=== PATIENT | male | born 1945 | race Caucasian/White ===

== ENCOUNTER 2017-01-31 15:50 | Emergency (ER) | payer MEDICARE ==
[2017-01-31 15:50] VITALS: BMI 33.9
[2017-01-31 16:00] VITALS: O2SAT 99
[2017-01-31] MEDS ORDERED: Naproxen 550 mg Tab PO STA (16:32)
[2017-01-31] MEDS ORDERED: Naproxen 550 mg Tab PO ONE (16:55)
--- NOTE | 2017-01-31 17:19 | C.PDOC ---
History Of Present Illness 71 year old male with a history of HTN and hypercholesterolemia, presents to the ED with complaints of back pain for the past 3 months. Records reviewed showing the patient was evaluated in the ER a year ago for the same complaints. Denies fall, injury, change in sensation, incontinence, or any other complaints at this time. Time Seen by Provider: 01/31/17 16:08 Chief Complaint (Nursing): Back Pain History Per: Patient History/Exam Limitations: no limitations Onset/Duration Of Symptoms: Days Current Symptoms Are (Timing): Still Present Quality Of Discomfort: "Pain" Severity: Mild Associated Symptoms: None Past Medical History Reviewed: Historical Data, Nursing Documentation, Vital Signs Vital Signs: Last Vital Signs Temp 97.5 F L 01/31/17 15:58 Pulse 73 01/31/17 15:58 Resp 16 01/31/17 15:58 BP 170/79 H 01/31/17 15:58 Pulse Ox 99 01/31/17 17:22 - Medical History PMH: HTN, Hypercholesterolemia Family History: States: Unknown Family Hx - Social History Hx Tobacco Use: No Hx Alcohol Use: Yes Hx Substance Use: No - Immunization History Hx Tetanus Toxoid Vaccination: No Hx Influenza Vaccination: No Hx Pneumococcal Vaccination: Yes Review Of Systems Except As Marked, All Systems Reviewed And Found Negative. Constitutional: Negative for: Fever Gastrointestinal: Negative for: Abdominal Pain Genitourinary: Negative for: Incontinence Musculoskeletal: Positive for: Back Pain Neurological: Negative for: Weakness, Numbness Physical Exam - Physical Exam Appears: Non-toxic, No Acute Distress Skin: Normal Color, Warm, Dry Head: Atraumatic, Normacephalic Eye(s): bilateral: Normal Inspection Oral Mucosa: Moist Neck: No Midline Cervical Tenderness, No Step Off Deformity Chest: Symmetrical Respiratory: No Accessory Muscle Use Back: No Vertebral Tenderness, Paraspinal Tenderness (+Right parathroacic tenderness) Extremity: Normal ROM, No Deformity Neurological/Psych: Oriented x3, Normal Speech, Normal Cognition ED Course And Treatment O2 Sat by Pulse Oximetry: 99 (Room air) Pulse Ox Interpretation: Normal Medical Decision Making Medical Decision Making: Plan: -Dorsal Throacic Spine X-ray -Naproxen -Flexeril -Reassess Progress: Disposition - Disposition Disposition: HOME/ ROUTINE Disposition Time: 17:52 Condition: STABLE Prescriptions: Cyclobenzaprine [Cyclobenzaprine HCl] 10 mg PO TID PRN #21 tab PRN Reason: Muscle Spasm Naproxen 500 mg PO BID PRN #14 tab PRN Reason: Pain, Mild (1-3) Instructions: Back Pain (GEN) - Clinical Impression Clinical Impression: Back pain - Scribe Statement The provider has reviewed the documentation as recorded by the Scribe Roxann Huertas. Provider Attestation: All medical record entries made by the Scribe were at my direction and personally dictated by me. I have reviewed the chart and agree that the record accurately reflects my personal performance of the history, physical exam, medical decision making, and the department course for this patient. I have also personally directed, reviewed, and agree with the discharge instructions and disposition.
--- NOTE | 2017-01-31 17:53 | RAD ---
HISTORY: back pain COMPARISON: No prior. FINDINGS: BONES: No fracture. Vertebral bodies maintained in height. Normal alignment maintained. DISC SPACES: Disc spaces maintained in height. Diffuse spondylosis with osteophytes about the mid and lower thoracic intervertebral disc spaces. SOFT TISSUES: Normal. OTHER FINDINGS: None. IMPRESSION: No evidence of fracture or degenerative disc disease.
[2017-01-31 18:07] VITALS: BP 162/82; PULSE 69; RESP 19; TEMP 98.2
== END 2017-01-31 18:06 | disposition home or self-care (01) ==
LOC: C.ER 15:50
DX: M54.6 Pain in thoracic spine (principal)

== ENCOUNTER 2017-04-05 20:06 | Emergency (ER) | payer MEDICARE ==
[2017-04-05 20:06] VITALS: BMI 33.9
[2017-04-05 20:40] VITALS: TEMP 98.2
--- NOTE | 2017-04-05 20:53 | C.PDOC ---
History Of Present Illness Patient is a 72 y/o male that presents to the ED for evaluation of back pain, and intermittent bladder pain for the last few days. Pt also reports burning sensation upon urination. Otherwise, denies any fever, chills, nausea, vomiting , or any other associated symptoms at this time. Time Seen by Provider: 04/05/17 20:53 Chief Complaint (Nursing): Male Genitourinary History Per: Patient History/Exam Limitations: no limitations Onset/Duration Of Symptoms: Days Current Symptoms Are (Timing): Still Present Severity: Moderate Pain Scale Rating Of: 4 Quality Of Discomfort: "Pain" Associated Symptoms: Urinary Symptoms. denies: Fever, Chills, Nausea, Vomiting , Diarrhea, Loss Of Appetite, Back Pain, Chest Pain, Constipation Alleviating Factors: None Recent travel outside of the [place]: No Additional History Per: Patient Past Medical History Reviewed: Historical Data, Nursing Documentation, Vital Signs Vital Signs: Last Vital Signs Temp 98.2 F 04/05/17 20:37 Pulse 3 L 04/05/17 20:37 Resp 20 04/05/17 20:37 BP 153/76 H 04/05/17 20:37 Pulse Ox 100 04/05/17 21:43 - Medical History PMH: HTN, Hypercholesterolemia Family History: States: Unknown Family Hx - Social History Hx Tobacco Use: No Hx Alcohol Use: Yes Hx Substance Use: No - Immunization History Hx Tetanus Toxoid Vaccination: No Hx Influenza Vaccination: No Hx Pneumococcal Vaccination: Yes Review Of Systems Constitutional: Negative for: Fever, Chills Cardiovascular: Negative for: Chest Pain, Palpitations Respiratory: Negative for: Cough, Shortness of Breath Gastrointestinal: Negative for: Nausea, Vomiting, Abdominal Pain Genitourinary: Positive for: Dysuria. Negative for: Frequency, Incontinence, Hematuria Musculoskeletal: Positive for: Back Pain Skin: Negative for: Rash Neurological: Negative for: Weakness, Numbness Physical Exam - Physical Exam Appears: Non-toxic, No Acute Distress Skin: Warm, Dry, No Rash Head: Atraumatic Eye(s): bilateral: Normal Inspection Oral Mucosa: Moist Neck: Normal ROM, Supple Chest: Symmetrical, No Tenderness Cardiovascular: Rhythm Regular, No Murmur Respiratory: No Rales, No Rhonchi, No Wheezing Gastrointestinal/Abdominal: Soft, No Tenderness Back: CVA Tenderness (right), No Vertebral Tenderness Neurological/Psych: Oriented x3, Normal Speech ED Course And Treatment - Laboratory Results Result Diagrams: 04/05/17 21:18 04/05/17 21:18 O2 Sat by Pulse Oximetry: 100 (on RA) Pulse Ox Interpretation: Normal Progress Note: Abd & pelvis CT, labs ordered and reviewed. Patient was given IV fluids, and Toradol in the ER. Reevaluation Time: 22:32 Reassessment Condition: Improved Medical Decision Making Medical Decision Making: Upon provider reevaluation patient is feeling better, is medically stable, and requires no further treatment in the ED at this time. Patient will be discharged home with Rx for flagyl and cipro . Counseling was provided and all questions were answered regarding diagnosis and need for follow up with Dr zeng. There is agreement to discharge plan. Return if symptoms persist or worsen. Disposition Counseled Patient/Family Regarding: Studies Performed, Diagnosis, Need For Followup, Rx Given - Disposition Referrals: Zhang Zeng MD [Medical Doctor] - Disposition: HOME/ ROUTINE Disposition Time: 20:53 Condition: FAIR Additional Instructions: Please return if symptoms recur Prescriptions: Ciprofloxacin [Cipro] 1 tab PO BID #14 tab Metronidazole [Flagyl] 500 mg PO TID #21 tablet Instructions: Diverticulitis (DC), Abdominal Pain (ED) - Clinical Impression Clinical Impression: Abdominal pain, Rectosigmoid diverticulitis - Scribe Statement The provider has reviewed the documentation as recorded by the Radha Contreras Provider Attestation: All medical record entries made by the Radha were at my direction and personally dictated by me. I have reviewed the chart and agree that the record accurately reflects my personal performance of the history, physical exam, medical decision making, and the department course for this patient. I have also personally directed, reviewed, and agree with the discharge instructions and disposition.
[2017-04-05 20:55] LABS: URINE BILIRUBIN NEGATIVE (NEGATIVE); URINE BLOOD NEGATIVE (NEGATIVE); URINE COLOR Yellow (YELLOW); URINE GLUCOSE (UA) NORMAL (Normal); URINE KETONE NEGATIVE (NEGATIVE); URINE LEUKOCYTE ESTERASE NEG Leu/uL (Negative); URINE PROTEIN NEGATIVE (NEGATIVE); URINE UROBILINOGEN NORMAL mg/dL (0.2-1.0); WBC URINE 1 /hpf (0-5)
[2017-04-05] MEDS ORDERED: Sodium Chloride 0.9% 1,000 ML IV ONE (21:02)
[2017-04-05 21:23] LABS: BASO # 0.2 K/uL (0.0-0.2); BASO % 1.3 % (0.0-2.0); EOS # 0.3 K/uL (0.0-0.7); EOS % 2.1 % (0.0-4.0); HEMATOCRIT 43.6 % (35.0-51.0); LYMPH # 2.1 K/uL (1.0-4.3); LYMPH % 17.3 % (20.0-40.0); MEAN CORPUSCULAR HEMOGLOBIN 29.4 pg (27.0-31.0); MEAN CORPUSCULAR HGB CONC 33.7 g/dL (33.0-37.0); MEAN PLATELET VOLUME 9.7 fL (7.2-11.7); MONO # 1.3 K/uL (0.0-0.8); RED CELL DISTRIBUTION WIDTH 14.1 % (11.5-14.5); WHITE BLOOD COUNT 12.2 K/uL (4.8-10.8)
[2017-04-05] MEDS ORDERED: Sodium Chloride 0.9% 1,000 ML ONE (21:25)
[2017-04-05 21:29] LABS: CHLORIDE 96 mmol/L (98-107)
[2017-04-05 21:30] LABS: POTASSIUM 4.1 mmol/L (3.6-5.2); SODIUM 137 mmol/L (132-148)
[2017-04-05 21:32] LABS: ALB/GLOB RATIO 1.3 (1.0-2.1); ALKALINE PHOSPHATASE 86 U/L (38-126); AST/SGOT 21 U/L (17-59); BLOOD UREA NITROGEN 18 mg/dL (9-20); CARBON DIOXIDE 31 mmol/L (22-30); GFR AFRICAN-AMERICAN > 60; TOTAL PROTEIN 7.7 g/dL (6.3-8.3)
[2017-04-05 21:33] LABS: ALT/SGPT 19 U/L (21-72); CALCIUM 9.4 mg/dl (8.6-10.4); GLUCOSE,RANDOM 117 mg/dL (75-110)
[2017-04-05] MEDS ORDERED: Clindamycin 600mg/50ml D5W 600 MG/50 ML VIAL IVPB ONE (22:29)
[2017-04-05] MEDS ORDERED: metroNIDAZOLE IV 500 mg/100 ml 500 MG/100 ML BAG ONE (22:29)
[2017-04-05] MEDS ORDERED: metroNIDAZOLE IV 500 mg/100 ml 500 MG/100 ML BAG IVPB SCH (22:30)
[2017-04-06 00:19] VITALS: BP 141/84; PULSE 70; RESP 18; O2SAT 99
--- NOTE | 2017-04-06 08:33 | CT ---
PROCEDURE: CT Abdomen and Pelvis without intravenous contrast HISTORY: r flank pain, hx of kidney stones COMPARISON: None. TECHNIQUE: Unenhanced study. Neither oral nor intravenous contrast administered. . Radiation dose: Total exam DLP = 1009.01 mGy-cm. This CT exam was performed using one or more of the following dose reduction techniques: Automated exposure control, adjustment of the mA and/or kV according to patient size, and/or use of iterative reconstruction technique. FINDINGS: LOWER THORAX: Unremarkable. LIVER: Unremarkable. No gross lesion or ductal dilatation. GALLBLADDER AND BILE DUCTS: Unremarkable. PANCREAS: Unremarkable. No gross lesion or ductal dilatation. SPLEEN: Unremarkable. ADRENALS: Unremarkable. No mass. KIDNEYS AND URETERS: Unremarkable. No hydronephrosis. No solid mass. VASCULATURE: Unremarkable. No aortic aneurysm. BOWEL: Sigmoid diverticulitis with intense inflammatory changes without drainable collection, loculated air or free air. 1st APPENDIX: Unremarkable. Normal appendix. PERITONEUM: Unremarkable. No free fluid. No free air. LYMPH NODES: Unremarkable. No enlarged lymph nodes. BLADDER: Unremarkable. REPRODUCTIVE: Unremarkable. BONES: No acute fracture. OTHER FINDINGS: None. IMPRESSION: Acute sigmoid diverticulitis. No evidence of loculated air, free air or drainable collection. Concordant results (preliminary interpretation) provided by [facility]. Procedure Completed: 21:55. Preliminary ([facility]) Report: Dictated and Authenticated: 22:18. Final Interpretation: 08:31. April 06, 2017.
== END 2017-04-06 00:20 | disposition home or self-care (01) ==
LOC: C.ER 20:06
DX: K57.32 Diverticulitis of large intestine without perforation or abscess without bleeding (principal); I10 Essential (primary) hypertension; E78.00 Pure hypercholesterolemia, unspecified
CPT/HCPCS: 74176; 80053; 81001; 83690; 85025; 85610; 96365; 96367; 96375; 99285; J1885; J7040

== ENCOUNTER 2017-06-22 12:27 | Emergency (ER) | payer MEDICARE ==
[2017-06-22 12:27] VITALS: BMI 33.9
[2017-06-22 12:46] VITALS: TEMP 98
[2017-06-22] MEDS ORDERED: Naproxen 550 mg Tab PO STA (13:07)
[2017-06-22] MEDS ORDERED: Naproxen 550 mg Tab PO ONE (13:11)
--- NOTE | 2017-06-22 14:27 | C.PDOC ---
History Of Present Illness 72 yr old male presents to the ER with complaints of pain and tingling sensation in the right 1st, 2nd and 3rd digits for the past several days. Patient states he has hadd this type of pain before, states he use to do work which required a lot of repetitive movements and was previously told he has carpal tunnel. Patient also reports a bruise to the anterior right wrist. He denies trauma/injury, arm pain, shoulder pain, extremity weakness. Time Seen by Provider: 06/22/17 12:41 Chief Complaint (Nursing): Upper Extremity Problem/Injury History Per: Patient History/Exam Limitations: no limitations Onset/Duration Of Symptoms: Days Current Symptoms Are (Timing): Still Present Severity: Mild Past Medical History Reviewed: Historical Data, Nursing Documentation, Vital Signs Vital Signs: Last Vital Signs Temp 98 F 06/22/17 12:43 Pulse 75 06/22/17 14:55 Resp 16 06/22/17 14:55 BP 137/76 06/22/17 14:55 Pulse Ox 99 06/22/17 18:37 - Medical History PMH: HTN, Hypercholesterolemia Family History: States: No Known Family Hx - Social History Hx Tobacco Use: No Hx Alcohol Use: Yes Hx Substance Use: No - Immunization History Hx Tetanus Toxoid Vaccination: No Hx Influenza Vaccination: No Hx Pneumococcal Vaccination: Yes Review Of Systems Except As Marked, All Systems Reviewed And Found Negative. Constitutional: Negative for: Fever, Chills Musculoskeletal: Positive for: Other (Pain and tingling sensation at right 1st , 2nd and 3rd digits ). Negative for: Shoulder Pain, Arm Pain Skin: Positive for: Bruising (to the right anterior wrist) Neurological: Negative for: Weakness, Numbness Physical Exam - Physical Exam Appears: Well, Non-toxic, No Acute Distress Skin: Normal Color, Warm, Dry, No Rash Head: Normacephalic Cardiovascular: Rhythm Regular Respiratory: Normal Breath Sounds, No Rales, No Rhonchi, No Wheezing Extremity: No Tenderness, Capillary Refill (<2 sec all digits ), No Swelling, Other (2cm area of mild ecchymosis and tenderness to palpation to distal/medial forearm, anterior aspect. ROM intact at the wrist and digits. No erythema of the hand or wrist.) Extremity: Bilateral: Normal Color And Temperature, Normal ROM Pulses: Left Radial: Normal, Right Radial: Normal Neurological/Psych: Oriented x3, Normal Motor, Normal Sensation ED Course And Treatment O2 Sat by Pulse Oximetry: 99 (RA ) Pulse Ox Interpretation: Normal - Other Rad X-Ray - Right Forearm X-Ray: Viewed By Me, Read By Radiologist Interpretation: PROCEDURE: Radiographs of the Right Forearm. HISTORY: right forearm pain. COMPARISON: No prior study available comparison. TECHNIQUE: Frontal and lateral views obtained. FINDINGS: BONES: No evidence of acute displaced fracture nor dislocation. There is a small elliptical shaped corticated density adjacent to the lateral epicondyle which could represent some old posttraumatic mineralization or possibly old unfused avulsion injury. The osseous structures appear intact. There are no cortical destructive changes. Incidental note made of a prominent radial tuberosity. JOINT SPACES: Joint spaces appear preserved. OTHER FINDINGS: None. IMPRESSION: No evidence of acute displaced fracture nor dislocation. There is a small elliptical shaped corticated density adjacent to the lateral epicondyle which could represent some old posttraumatic mineralization or possibly old unfused avulsion injury. Incidental note made of a prominent radial tuberosity. Progress Note: PLAN: Patient given PO naprosyn. X-Ray - Right Forearm ordered and reviewed, was (-) for fracture/dislocation. Right wrist removable cockup splint was applied by computer systems technician (for carpal tunnel symptoms). Patient given Rx for Naprosyn and instructed to follow up with hand specialist within 1 week. He understands he should return to ED if symptoms worsen. Reevaluation Time: 14:30 Reassessment Condition: Improved Disposition Counseled Patient/Family Regarding: Diagnosis, Need For Followup, Rx Given - Disposition Referrals: Lisa Bashir MD [Provisional Staff] - [employer] [facility] [Outside] Disposition: HOME/ ROUTINE Disposition Time: 14:30 Condition: STABLE Additional Instructions: SEGUIMIENTO CON EL ESPECIALISTA DE MANO DENTRO DE 1 SEMANA USE LOS MEDICAMENTOS QUE EVARISTO NECESARIOS MANTENER LA LAMINA A LA TANTA POSIBILIDAD Y LA MANO / BRAZO DE REPOSO DEVUELVA A LA HAFSA DE EMERGENCIA SI LOS SNTOMAS EMPEORARAN Prescriptions: Naproxen [Naprosyn Tab] 375 mg PO BID PRN #20 tab PRN Reason: pain Instructions: Carpal Tunnel Syndrome (ED) Forms: [employer] (Colombian) Print Language: GREENLANDIC - POA Present On Arrival: None - Clinical Impression Clinical Impression: Carpal tunnel syndrome on right - Scribe Statement The provider has reviewed the documentation as recorded by the Sukhiibe Camila Fry Provider Attestation: All medical record entries made by the Sukhiibrosalinda were at my direction and personally dictated by me. I have reviewed the chart and agree that the record accurately reflects my personal performance of the history, physical exam, medical decision making, and the department course for this patient. I have also personally directed, reviewed, and agree with the discharge instructions and disposition.
[2017-06-22 14:56] VITALS: BP 137/76; PULSE 75; RESP 16
--- NOTE | 2017-06-22 15:30 | RAD ---
PROCEDURE: Radiographs of the Right Forearm HISTORY: right forearm pain COMPARISON: No prior study available comparison TECHNIQUE: Frontal and lateral views obtained. FINDINGS: BONES: No evidence of acute displaced fracture nor dislocation. There is a small elliptical shaped corticated density adjacent to the lateral epicondyle which could represent some old posttraumatic mineralization or possibly old unfused avulsion injury. The osseous structures appear intact. There are no cortical destructive changes. Incidental note made of a prominent radial tuberosity. JOINT SPACES: Joint spaces appear preserved. OTHER FINDINGS: None. IMPRESSION: No evidence of acute displaced fracture nor dislocation. There is a small elliptical shaped corticated density adjacent to the lateral epicondyle which could represent some old posttraumatic mineralization or possibly old unfused avulsion injury. Incidental note made of a prominent radial tuberosity.
[2017-06-22 16:53] VITALS: O2SAT 99
== END 2017-06-22 14:55 | disposition home or self-care (01) ==
LOC: C.ER 12:27
DX: G56.01 Carpal tunnel syndrome, right upper limb (principal)

== ENCOUNTER 2018-12-04 13:27 | Emergency (ER) | payer MEDICARE ==
[2018-12-04 13:27] VITALS: BMI 33.9
[2018-12-04 14:05] VITALS: O2SAT 99
[2018-12-04] MEDS ORDERED: Tetanus/Diphtheria Toxoids 0.5 ml Syringe IM ONE ×2 (14:05→14:24)
[2018-12-04] MEDS ORDERED: Bacitracin 500 Units/gm Oint Foilpak UD TOP ONE (14:05)
[2018-12-04] MEDS ORDERED: Bacitracin 500 Units/gm Oint Foilpak UD ONE (14:23)
--- NOTE | 2018-12-04 15:11 | C.PDOC ---
History Of Present Illness 73 y/o male pt presents to the ER c/o a trip and fall. Associated sx includes headache, neck pain and left knee pain. Pt reports he tripped on tree roots outside and fell on a fence landing on his forehead and knee, he then fell backwards. Pt denies chest pain, palpitations, SOB, dizziness and us of blood thinners. Pt is unsure about his tetanus vaccination and LOC. Time Seen by Provider: 12/04/18 13:37 Chief Complaint (Nursing): Lower Extremity Problem/Injury History Per: Patient History/Exam Limitations: no limitations Onset/Duration Of Symptoms: Hrs Current Symptoms Are (Timing): Still Present Past Medical History Reviewed: Historical Data, Nursing Documentation, Vital Signs Vital Signs: Last Vital Signs Temp 98.1 F 12/04/18 14:00 Pulse 76 12/04/18 14:00 Resp 18 12/04/18 14:00 BP 145/81 12/04/18 14:00 Pulse Ox 99 12/04/18 14:00 - Medical History PMH: HTN, Hypercholesterolemia Family History: States: Unknown Family Hx - Social History Hx Tobacco Use: No Hx Alcohol Use: Yes Hx Substance Use: No - Immunization History Hx Tetanus Toxoid Vaccination: No Hx Influenza Vaccination: No Hx Pneumococcal Vaccination: Yes Review Of Systems Constitutional: Positive for: Other (unsure of tetanus vaccination and LOC ; no use of blood thinners) Cardiovascular: Negative for: Chest Pain, Palpitations Respiratory: Negative for: Shortness of Breath Musculoskeletal: Positive for: Neck Pain, Other (left knee pain ) Neurological: Positive for: Headache. Negative for: Dizziness Physical Exam - Physical Exam Appears: Non-toxic, No Acute Distress, Other (ambulatory ) Skin: Warm, Dry Head: Normacephalic, Tenderness (mildly tender to palpate on occiptal and upper cervical ), Other (contusion on left side of forehead) Eye(s): bilateral: Normal Inspection, PERRL, EOMI Chest: Symmetrical Cardiovascular: Rhythm Regular Respiratory: Normal Breath Sounds, No Rales, No Rhonchi, No Wheezing Extremity: Tenderness (left knee ), No Calf Tenderness, Capillary Refill (<2 sec), No Deformity, No Swelling, Other (abrasion on left knee 2 cm ) Neurological/Psych: Oriented x3, Normal Speech, Normal Cognition, Normal Motor, Normal Sensation Gait: Steady ED Course And Treatment O2 Sat by Pulse Oximetry: 99 (RA) Pulse Ox Interpretation: Normal - CT Scan/US head Other Rad Studies (CT/US): Read By Radiologist, Radiology Report Reviewed CT/US Interpretation: Accession No. : [id number]. Patient Name / ID : JERARDO GILLIAM / [id number]. Exam Date : 12/04/2018 15:12:22 ( Approved ). Study Comment : Sex / Age : M / 73Y. Creator : Con Saul Dictator : Juan Daniel Aly MD. Scouring Train Operator Chief : Applications Programmer : Juan Daniel Aly MD. Approv er2 : Report Date : 12/04/2018 15:22:42. My Comment : . Date of service: 2018-12-04 15:12:22. PROCEDURE: CT HEAD WITHOUT CONTRAST. HISTORY: HEAD INJURY, DIZZINESS. COMPARISON: None available. TECHNIQUE: Axial computed tomography images were obtained through the head/brain without intravenous contrast. Radiation dose: Total exam DLP = 1033.35 mGy-cm. This CT exam was performed using one or more of the following dose reduction techniques: Automated exposure control, adjustment of the mA and/or kV according to patient size, and/or use of iterative reconstruction technique. FINDINGS: HEMORRHAGE: No intracranial hemorrhage. BRAIN: No mass effect or edema. Scattered focal lucencies in the subcortical and periventricular white matter suggestive for chronic microvascular ischemic change. Additional focal areas of low attenuation seen within the bifrontal subcortical white matter suggestive for scattered ischemic change. VENTRICLES: Unremarkable. No hydrocephalus. CALVARIUM: Unremarkable. PARANASAL SINUSES: Unremarkable as visualized. No significant inflammatory changes. MASTOID AIR CELLS: Unremarkable as visualized. No inflammatory changes. OTHER FINDINGS: None. IMPRESSION: No acute intracranial abnormality. Chronic microvascular ischemic changes. If symptoms persists, consider correlation with MRI. cervical spine CT Other Rad Studies (CT/US): Read By Radiologist, Radiology Report Reviewed CT/US Interpretation: Accession No. : [id number]. Patient Name / ID : JERARDO GILLIAM / [id number]. Exam Date : 12/04/2018 15:15:36 ( Approved ). Study Comment : Sex / Age : M / 73Y. Creator : Con Saul Dictator : Juan Daniel Aly MD. Scouring Train Operator Chief : Applications Programmer : Juan Daniel Aly MD. Approver2 : Report Date : 12/04/2018 15:22:47. My Comment : . CT cervical spine. HISTORY: Neck pain. Fall. COMPARISON: None available. FINDINGS: Patient is rotated in the scanner, limiting evaluation. Loss of height of the inferior endplates of the C4 through C7 vertebral bodies. Loss of height of the C5 vertebral body. Prominent anterior bony bridging/osteophytosis at the C3-4, C4-5, C5-6, C6-7, C7-T1, and T1-2 levels. The most prominent osteophyte extends from the C4 thru C6 levels. At multiple levels, the osteophytes are discontinuous for example at the C3-4, C4-5, C5-6, and T1-2 levels; indeterminate chronicity. Prominent bony productive change with sclerosis and hypertrophy at the atlantodental interval with well corticated ossific density seen superior to the tip of the dens as demonstrated on series 60, image 55 measuring 5 millimeters. Multilevel uncovertebral joint and facet hypertrophy. Multilevel posterior disc/disc osteophyte complexes seen throughout the cervical spine most prominent at the C3-4, C4-5, and C5-6 levels. No gross prevertebral soft tissue swelling. Partial opacification of the mastoid air cells. Heterogeneity of the thyroid. Vascular calcifications. Biapical pleural thickening. Impression: Patient is rotated in the scanner, limiting evaluation. Loss of height of the inferior endplates of the C4 through C7 vertebral bodies. Loss of height of the C5 vert ebral body. Prominent anterior bony bridging/osteophytosis at the C3-4, C4-5, C5-6, C6-7, C7-T1, and T1-2 levels. The most prominent osteophyte extends from the C4 thru C6 levels. At multiple levels, the osteophytes are discontinuous for example at the C3-4, C4-5, C5-6, and T1-2 levels; indeterminate chronicity. Prominent bony productive change with sclerosis and hypertrophy at the atlantodental interval with well corticated ossific density seen superior to the tip of the dens as demonstrated on series 60, image 55 measuring 5 millimeters. Multilevel uncovertebral joint and facet hypertrophy. Multilevel posterior disc/disc osteophyte complexes seen throughout the cervical spine most prominent at the C3-4, C4-5, and C5-6 levels. If pain persists, consider correlation with MRI. Progress Note: plans: -- CT cervical spine. -- CT head. -- XR left knee. -- bacitracin. -- tetanus shot. -- tylenol. bacitracin was aplied to the knee Disposition Counseled Patient/Family Regarding: Studies Performed, Diagnosis, Need For Followup, Rx Given - Disposition Referrals: Zhang Figueroa MD [Medical Doctor] - Disposition: HOME/ ROUTINE Disposition Time: 16:00 Condition: STABLE Additional Instructions: FOLLOW UP WITH YOUR DOCTOR IN 1-2 DAYS USE MEDICATIONS NEEDED RETURN TO ER IF SYMPTOMS WORSEN Prescriptions: Cyclobenzaprine [Flexeril] 10 mg PO BID PRN #15 tab PRN Reason: Muscle Spasm Naproxen 375 mg PO BID PRN #20 tablet PRN Reason: pain Instructions: Knee Sprain (DC), Minor Head Injury (DC), Neck Sprain (DC), Skin Abrasions (DC) Forms: [employer] (Bolivian) Print Language: URDU - POA Present On Arrival: Falls Or Trauma - Clinical Impression Clinical Impression: Osteoarthritis, Closed head injury, Left knee sprain, Acute cervical sprain, Abrasion of knee, left - Scribe Statement The provider has reviewed the documentation as recorded by the Radha Puri Do Provider Attestation: All medical record entries made by the Scribe were at my direction and personally dictated by me. I have reviewed the chart and agree that the record accurately reflects my personal performance of the history, physical exam, medical decision making, and the department course for this patient. I have also personally directed, reviewed, and agree with the discharge instructions and disposition.
--- NOTE | 2018-12-04 15:41 | CT ---
Date of service: 2018-12-04 15:12:22 PROCEDURE: CT HEAD WITHOUT CONTRAST. HISTORY: HEAD INJURY, DIZZINESS COMPARISON: None available. TECHNIQUE: Axial computed tomography images were obtained through the head/brain without intravenous contrast. Radiation dose: Total exam DLP = 1033.35 mGy-cm. This CT exam was performed using one or more of the following dose reduction techniques: Automated exposure control, adjustment of the mA and/or kV according to patient size, and/or use of iterative reconstruction technique. FINDINGS: HEMORRHAGE: No intracranial hemorrhage. BRAIN: No mass effect or edema. Scattered focal lucencies in the subcortical and periventricular white matter suggestive for chronic microvascular ischemic change. Additional focal areas of low attenuation seen within the bifrontal subcortical white matter suggestive for scattered ischemic change. VENTRICLES: Unremarkable. No hydrocephalus. CALVARIUM: Unremarkable. PARANASAL SINUSES: Unremarkable as visualized. No significant inflammatory changes. MASTOID AIR CELLS: Unremarkable as visualized. No inflammatory changes. OTHER FINDINGS: None. IMPRESSION: No acute intracranial abnormality. Chronic microvascular ischemic changes. If symptoms persists, consider correlation with MRI.
--- NOTE | 2018-12-04 15:58 | CT ---
CT cervical spine HISTORY: Neck pain. Fall. COMPARISON: None available. FINDINGS: Patient is rotated in the scanner, limiting evaluation. Loss of height of the inferior endplates of the C4 through C7 vertebral bodies. Loss of height of the C5 vertebral body. Prominent anterior bony bridging/osteophytosis at the C3-4, C4-5, C5-6, C6-7, C7-T1, and T1-2 levels. The most prominent osteophyte extends from the C4 thru C6 levels. At multiple levels, the osteophytes are discontinuous for example at the C3-4, C4-5, C5-6, and T1-2 levels; indeterminate chronicity. Prominent bony productive change with sclerosis and hypertrophy at the atlantodental interval with well corticated ossific density seen superior to the tip of the dens as demonstrated on series 60, image 55 measuring 5 millimeters. Multilevel uncovertebral joint and facet hypertrophy. Multilevel posterior disc/disc osteophyte complexes seen throughout the cervical spine most prominent at the C3-4, C4-5, and C5-6 levels. No gross prevertebral soft tissue swelling. Partial opacification of the mastoid air cells. Heterogeneity of the thyroid. Vascular calcifications. Biapical pleural thickening. Impression: Patient is rotated in the scanner, limiting evaluation. Loss of height of the inferior endplates of the C4 through C7 vertebral bodies. Loss of height of the C5 vertebral body. Prominent anterior bony bridging/osteophytosis at the C3-4, C4-5, C5-6, C6-7, C7-T1, and T1-2 levels. The most prominent osteophyte extends from the C4 thru C6 levels. At multiple levels, the osteophytes are discontinuous for example at the C3-4, C4-5, C5-6, and T1-2 levels; indeterminate chronicity. Prominent bony productive change with sclerosis and hypertrophy at the atlantodental interval with well corticated ossific density seen superior to the tip of the dens as demonstrated on series 60, image 55 measuring 5 millimeters. Multilevel uncovertebral joint and facet hypertrophy. Multilevel posterior disc/disc osteophyte complexes seen throughout the cervical spine most prominent at the C3-4, C4-5, and C5-6 levels. If pain persists, consider correlation with MRI.
[2018-12-04 16:06] VITALS: BP 125/61; PULSE 74; RESP 16; TEMP 97.8
--- NOTE | 2018-12-04 16:18 | RAD ---
Left knee three views HISTORY: Pain. Fall. Comparison: None available. Findings: Severe medial and patellofemoral compartment joint space narrowing with subchondral sclerosis. Enthesopathic change at the superior bony patella. No significant suprapatellar joint effusion. Cortical productive change seen along the medial and lateral cortices of the proximal tibia at the level of the proximal to mid medullary cavity which may represent the sequelae of chronic osseous injury. Clinical correlation. Impression: Severe medial and patellofemoral compartment joint space narrowing with subchondral sclerosis. Enthesopathic change at the superior bony patella. No significant suprapatellar joint effusion. Cortical productive change seen along the medial and lateral cortices of the proximal tibia at the level of the proximal to mid medullary cavity which may represent the sequelae of chronic osseous injury. Clinical correlation. If pain persists, consider correlation with MRI. This case was placed in the PA review folder.
== END 2018-12-04 16:17 | disposition home or self-care (01) ==
LOC: C.ER 13:27
DX: S00.83XA Contusion of other part of head, initial encounter (principal); S83.92XA Sprain of unspecified site of left knee, initial encounter; S13.4XXA Sprain of ligaments of cervical spine, initial encounter; S80.212A Abrasion, left knee, initial encounter; W01.0XXA Fall on same level from slipping, tripping and stumbling without subsequent striking against object, initial encounter; M19.90 Unspecified osteoarthritis, unspecified site

== ENCOUNTER 2019-02-08 14:22 | Emergency (ER) | payer MEDICARE ==
[2019-02-08 14:50] VITALS: BMI 33.0
[2019-02-08 14:57] VITALS: BP 130/71; PULSE 76; RESP 18; TEMP 97.9; O2SAT 97
[2019-02-08] MEDS ORDERED: Lidocaine 2% Inj (20ml) INFIL ONE (15:16)
[2019-02-08] MEDS ORDERED: Lidocaine 2% MPF (5 ml) Inj ONE ×2 (15:28→15:46)
[2019-02-08] MEDS ORDERED: Bacitracin 500 Units/gm Oint Foilpak UD ONE (15:29)
--- NOTE | 2019-02-08 16:15 | C.PDOC ---
History Of Present Illness Patient accidentally injured/cut his right index finger with a spring. Time Seen by Provider: 02/08/19 15:09 Chief Complaint (Nursing): Abnormal Skin Integrity History Per: Patient Onset/Duration Of Symptoms: Mins ([employer]), Laceration Current Symptoms Are (Timing): Still Present Location Of Injury: Right: Hand (Index finger) Severity: Moderate Additional History Per: Prior Records Past Medical History Reviewed: Historical Data, Nursing Documentation, Vital Signs Vital Signs: Last Vital Signs Temp 97.9 F 02/08/19 14:55 Pulse 76 02/08/19 14:55 Resp 18 02/08/19 14:55 BP 130/71 02/08/19 14:55 Pulse Ox 97 02/08/19 14:55 - Medical History PMH: Diabetes, HTN, Hypercholesterolemia Family History: States: Unknown Family Hx - Social History Hx Tobacco Use: No Hx Alcohol Use: Yes Hx Substance Use: No - Immunization History Hx Tetanus Toxoid Vaccination: Yes (2018) Hx Influenza Vaccination: No Hx Pneumococcal Vaccination: Yes Review Of Systems Except As Marked, All Systems Reviewed And Found Negative. Constitutional: Negative for: Fever, Weakness Musculoskeletal: Positive for: Hand Pain (right index finger) Skin: Negative for: Rash Neurological: Negative for: Weakness, Numbness Physical Exam - Physical Exam Appears: Non-toxic, No Acute Distress Skin: Warm, Dry Head: Atraumatic Neck: Normal ROM, Supple Extremity: Normal ROM, Capillary Refill (wnl), Other (Laceration on volar aspect of distal phalanx of right index finger) Pulses: Right Radial: Normal Neurological/Psych: Normal Motor, Normal Sensation ED Course And Treatment O2 Sat by Pulse Oximetry: 97 Pulse Ox Interpretation: Normal Reassessment Condition: Improved Laceration - Laceration Repair Right index finger Wound Length (In cm): 4 Description Of Wound: Clean, Irregular, Contused Tissue Wound Cleansed With: Betadine Anesthesia: Lidocaine 2% (Digital block) Wound Examination: Irrigated With Saline, No FB With Wound Exploration, No Tendon Injury With Wound Exploration Wound Closure: Suture Suture Technique And Material Used: Interrupted, Nylon (5-0 Ethylon) Wound Complexity: Intermediate Disposition Counseled Patient/Family Regarding: Diagnosis, Need For Followup, Rx Given - Disposition Referrals: Corina Camarena MD [Staff Provider] - Zhang Figueroa MD [Medical Doctor] - Disposition: HOME/ ROUTINE Disposition Time: 16:19 Condition: STABLE Additional Instructions: Follow up with a Hand specialist this week for further evaluation and treatment. Return to the ER if you develop redness, swelling, pus drainage, fever, worsening of symptoms or if yo have any other concerns. Prescriptions: Cephalexin [cephalexin] 500 mg PO TID 5 Days #15 cap Instructions: Laceration Repair With Stitches (DC) Forms: [employer] (Sami) - Clinical Impression Clinical Impression: Laceration of right index finger
== END 2019-02-08 16:25 | disposition home or self-care (01) ==
LOC: C.ER 14:22
DX: S61.210A Laceration without foreign body of right index finger without damage to nail, initial encounter (principal); W45.8XXA Other foreign body or object entering through skin, initial encounter